=== PATIENT | male | born 1940 | race Caucasian/White ===

== ENCOUNTER 2019-05-30 13:06 | Outpatient (CLI) | payer SELFPAY | END 2019-05-30 13:07 | disposition home or self-care (01) | PROVIDERS: PCP Family Medicine; Visit Provider Urology | DX: C61 Malignant neoplasm of prostate (principal) | CPT/HCPCS: 99199 ==

== ENCOUNTER 2019-08-15 12:58 | Outpatient (CLI) | payer MEDICARE, SELFPAY ==
[2019-08-15 14:10] LABS: Prostate Specific Antigen 3.4 ng/mL (< OR = 4.0)
[2019-08-16 09:46] LABS: Alanine Aminotransferase 20 U/L (16-63); Albumin Level 3.6 g/dL (3.4-5.0); Alkaline Phosphatase 142 U/L (46-116); Anion Gap 14.7 mmol/L (7-16); Aspartate Amino Transferase 21 U/L (15-37); Bilirubin,Total 0.3 mg/dL (0.00-1.00); Blood Urea Nitrogen 23 mg/dL (7-18); Calcium 9.2 mg/dL (8.5-10.1); Carbon Dioxide 31 mmol/L (21-32); Chloride 103 mmol/L (98-108); Estimated Glomerular Filt Rate 60; Glucose 118 mg/dL (70-99); Osmolality Calculated 302 mOsm/kg (285-295); Potassium 4.7 mmol/L (3.5-5.1); Sodium 144 mmol/L (136-145); Total Protein 6.7 g/dL (6.4-8.2)
[2019-08-20 15:43] LABS: Testosterone Total <1 ng/dL (250-1100)
== END 2019-08-15 12:59 | disposition home or self-care (01) ==
LOC: CHSLAB 13:00
PROVIDERS: PCP Family Medicine; Visit Provider Urology
DX: Z19.1 Hormone sensitive malignancy status (principal); C61 Malignant neoplasm of prostate
CPT/HCPCS: 36415; 80053; 84153; 84403

== ENCOUNTER 2019-10-13 11:27 | Outpatient (CLI) | payer MEDICARE, SELFPAY ==
[2019-10-13 11:39] LABS: Basophils Absolute Auto 0.09 K/mm3 (0.00-0.10); Basophils Percent Auto 0.9 % (0.0-1.0); Eosinophils Absolute Auto 0.83 K/mm3 (0.02-0.50); Eosinophils Percent Auto 8.2 % (1.0-6.0); Hemoglobin 14.2 g/dL (12.4-15.3); Immature Granulocyte Absolute 0.02 K/mm3 (0.00-0.00); Immature Granulocyte Percent A 0.2 % (0.0-0.0); Lymphocytes Absolute Auto 1.87 K/mm3 (1.10-4.50); Lymphocytes Percent Auto 18.5 % (18.0-42.0); Mean Corpuscular HGB Conc 32.3 g/dL (32.0-36.0); Mean Corpuscular Hemoglobin 30.7 pg (27.0-31.0); Mean Corpuscular Volume 95.2 fL (78.0-102.0); Mean Platelet Volume 9.5 fl (8.7-11.0); Monocytes Absolute Auto 0.92 K/mm3 (0.10-0.90); Monocytes Percent Auto 9.1 % (2.0-11.0); Neutrophils Absolute Auto 6.4 K/mm3 (1.7-7.2); Neutrophils Percent Auto 63.1 % (50.0-70.0); Platelet Count Result 298 K/mm3 (150-420); Red Blood Count 4.62 M/mm3 (4.70-6.10); Red Cell Distribution Width 13.6 % (11.6-14.4); White Blood Count 10.1 K/mm3 (4.8-10.8)
[2019-10-13 16:20] LABS: Alanine Aminotransferase 15 U/L (16-63); Albumin Level 3.6 g/dL (3.4-5.0); Alkaline Phosphatase 105 U/L (46-116); Aspartate Amino Transferase 15 U/L (15-37); Bilirubin,Total 0.3 mg/dL (0.00-1.00); Blood Urea Nitrogen 21 mg/dL (7-18); Calcium 9.8 mg/dL (8.5-10.1); Carbon Dioxide 33 mmol/L (21-32); Estimated Glomerular Filt Rate 59; Glucose 94 mg/dL (70-99); Prostate Specific Antigen 2.8 ng/mL (< OR = 4.0); Total Protein 6.9 g/dL (6.4-8.2)
[2019-10-13 17:37] LABS: Anion Gap 12.4 mmol/L (7-16); Chloride 102 mmol/L (98-108); Osmolality Calculated 299 mOsm/kg (285-295); Potassium 4.4 mmol/L (3.5-5.1); Sodium 143 mmol/L (136-145)
[2019-10-18 14:20] LABS: Testosterone Total 1 ng/dL (250-1100)
== END 2019-10-13 11:28 | disposition home or self-care (01) ==
PROVIDERS: PCP Family Medicine; Visit Provider Urology
DX: C61 Malignant neoplasm of prostate (principal); Z19.1 Hormone sensitive malignancy status
CPT/HCPCS: 36415; 80053; 84153; 84403; 85025

== ENCOUNTER 2019-12-19 08:04 | Outpatient (CLI) | payer MEDICARE, SELFPAY ==
[2019-12-19 09:41] LABS: Alanine Aminotransferase 13 U/L (16-63); Albumin Level 3.3 g/dL (3.4-5.0); Alkaline Phosphatase 118 U/L (46-116); Aspartate Amino Transferase 18 U/L (15-37); Bilirubin,Total 0.5 mg/dL (0.00-1.00); Blood Urea Nitrogen 18 mg/dL (7-18); Calcium 9.5 mg/dL (8.5-10.1); Carbon Dioxide 32 mmol/L (21-32); Chloride 100 mmol/L (98-108); Estimated Glomerular Filt Rate > 60; Glucose 99 mg/dL (70-99); Osmolality Calculated 291 mOsm/kg (285-295); Prostate Specific Antigen 4.7 ng/mL (< OR = 4.0); Sodium 140 mmol/L (136-145); Total Protein 6.8 g/dL (6.4-8.2)
[2019-12-23 10:07] LABS: Testosterone Total 3 ng/dL (250-1100)
== END 2019-12-19 08:05 | disposition home or self-care (01) ==
LOC: CHSLAB 08:06
PROVIDERS: PCP Family Medicine; Visit Provider Urology
DX: C61 Malignant neoplasm of prostate (principal); Z19.1 Hormone sensitive malignancy status
CPT/HCPCS: 36415; 80053; 84153; 84403

== ENCOUNTER 2020-01-29 13:12 | Outpatient (CLI) | payer MEDICARE, SELFPAY ==
[2020-01-29 14:59] LABS: Prostate Specific Antigen 7.3 ng/mL (< OR = 4.0)
[2020-02-02 13:09] LABS: Testosterone Total 6 ng/dL (250-1100)
== END 2020-01-29 13:13 | disposition home or self-care (01) ==
LOC: CHSLAB 13:15
PROVIDERS: PCP Family Medicine; Visit Provider Urology
DX: C61 Malignant neoplasm of prostate (principal); Z19.1 Hormone sensitive malignancy status
CPT/HCPCS: 36415; 84153; 84403